=== PATIENT | female | born 1945 | race Caucasian/White ===

== ENCOUNTER → 2023-10-20 | Outpatient (REF) | payer MEDICARE, BC | LOC: M LAB REF 16:38 | PROVIDERS: ATTEND Internal Medicine | DX: N39.0 Urinary tract infection, site not specified (principal) ==

== ENCOUNTER → 2023-12-30 | Outpatient (CLI) | payer MEDICARE, BC ==
[2023-12-30 12:52] LABS: FOLATE 8.4 NG/ML (>5.4); TOTAL 25(OH) VITAMIN D 67.4 NG/ML (20.0-100.0)
[2023-12-30 12:53] LABS: THYROID STIMULATING HORMONE 2.144 uIU/ML (0.55-4.78)
[2024-01-02 12:27] LABS: VITAMIN E(ALPHA TOCOPHEROL) 13.5 mg/L (5.7-19.9)
[2024-01-05 00:53] LABS: STRIATED MUSCLE AB SCREEN NEGATIVE (NEGATIVE)
[2024-01-05 17:07] LABS: VITAMIN B6,PYRIDOXAL PHOSPHATE 14.4 ng/mL (2.1-21.7)
[2024-01-05 19:38] LABS: VITAMIN B1 LEVEL WHOLE BLOOD 112 nmol/L (78-185)
[2024-01-06 22:23] LABS: ACHR BINDING ANTIBODY < 0.30 nmol/L (<=0.30); ACHR BLOCKING AB < 15 (<15); ACHR MODULATING ANTIBODY 3 (<32)
== END ==
LOC: M LAB 11:09
PROVIDERS: ATTEND Psychiatry & Neurology Neurology
DX: R53.1 Weakness (principal); G70.00 Myasthenia gravis without (acute) exacerbation; E53.8 Deficiency of other specified B group vitamins; E55.9 Vitamin D deficiency, unspecified; E51.9 Thiamine deficiency, unspecified; E53.1 Pyridoxine deficiency; R06.00 Dyspnea, unspecified; G72.9 Myopathy, unspecified

== ENCOUNTER → 2024-01-21 | Outpatient (REF) | payer MEDICARE, BC ==
[2024-01-21 17:36] LABS: RSV AMPLIFICATION NEGATIVE (NEGATIVE)
== END ==
LOC: M LAB REF 16:20
PROVIDERS: ATTEND Nurse Practitioner Family
DX: R05.9 Cough, unspecified (principal)